=== PATIENT | male | born 1955 | race Caucasian/White ===

== ENCOUNTER 2019-12-19 09:45 | Outpatient (REF) | payer OTHER, SELFPAY ==
[2019-12-19 19:16] LABS: Calculated LDL 181 mg/dL (<100); Cholesterol 241 mg/dL (<200); Glucose 96 mg/dL (74-106); HDL Cholesterol 37 mg/dL (40-60); Triglyceride 116 mg/dL (<150)
== END 2019-12-19 10:05 ==
LOC: NCHCN 09:45
PROVIDERS: PCP Family Medicine; Visit Provider Nurse Practitioner Family
DX: Z00.00 Encounter for general adult medical examination without abnormal findings (principal); E78.5 Hyperlipidemia, unspecified
CPT/HCPCS: 80061; 82947

== ENCOUNTER 2020-02-05 10:21 | Outpatient (REF) | payer OTHER, SELFPAY ==
--- NOTE | 2020-02-05 09:30 | SKI_PTH ---
PATIENT: Antwan Gonzalez JR LOC: [facility] U#:[id number] AGE/SX: 64/M ROOM: RE02/05/[address]: Tiffany Shane : 1955 BED: DIS: 02/05/2020 SPEC #: [id number] RECD: 02/06/20 11:43 STATUS: ZAY REQ #: [id number] RAMA: 02/05/20 09:[address]: Tiffany Shane DEPT: Surgical Specimen RECD BY: Phoebe Choi ENTERED: 02/06/20 11:43 SP TYPE: EUSEBIA BERRY DR: Rhiannon Parisi V Tissues: 1 - SKIN BIOPSY(SHAVE/PUNCH) Procedures: SKIN LEVEL 4 Comments: [id number]
[2020-02-05 20:10] LABS: Anion Gap 6.2 mmol/L (3-11); BUN 20 mg/dL (7-18); CO2 28.8 mmol/L (21.0-32.0); CREATININE 0.83 mg/dL (0.70-1.30); Calculated LDL 86 mg/dL (<100); Chloride 105 mmol/L (98-107); Cholesterol 142 mg/dL (<200); Glucose 94 mg/dL (74-106); HDL Cholesterol 44 mg/dL (40-60); Potassium 4.5 mmol/L (3.5-5.1); Sodium 140 mmol/L (136-145); Triglyceride 64 mg/dL (<150)
== END 2020-02-05 10:41 ==
LOC: NCHCN 10:21
PROVIDERS: PCP Family Medicine; Visit Provider Nurse Practitioner Family
DX: E78.5 Hyperlipidemia, unspecified (principal); D18.01 Hemangioma of skin and subcutaneous tissue
CPT/HCPCS: 80048; 80061; 88305

== ENCOUNTER 2020-12-17 09:04 | Outpatient (REF) | payer BC, SELFPAY ==
[2020-12-17 16:08] LABS: ALT 34 U/L (16-63); AST 26 U/L (15-37); Calculated LDL 93 mg/dL (<100); Cholesterol 146 mg/dL (<200); Glucose 89 mg/dL (74-106); HDL Cholesterol 40 mg/dL (40-60); Triglyceride 68 mg/dL (<150)
[2020-12-17 16:21] LABS: Creatine Kinase 261 U/L (39-308)
[2020-12-17 21:51] LABS: PSA, Screening 6.9 ng/mL (0.0-4.5)
== END 2020-12-17 09:05 | disposition home or self-care (01) ==
LOC: NCHCN 09:04
PROVIDERS: PCP Family Medicine; Visit Provider Nurse Practitioner Family
DX: Z00.00 Encounter for general adult medical examination without abnormal findings (principal); Z13.1 Encounter for screening for diabetes mellitus; Z13.220 Encounter for screening for lipoid disorders; Z12.5 Encounter for screening for malignant neoplasm of prostate
CPT/HCPCS: 80061; 82550; 82947; 84153; 84450; 84460

== ENCOUNTER 2021-01-12 14:08 | Outpatient (REF) | payer BC, SELFPAY ==
[2021-01-12 16:22] LABS: Bacteria Few HPF (Negative); C & S Indicated? C&S Done As Ordered; Casts Negative LPF (Negative); Crystals Negative HPF (Negative); Epithelial Cells Few HPF (Negative); Mucus Negative (Negative); RBC >50 HPF (0-2)
[2021-01-12 19:18] LABS: Abs Immature Grans 0.05 10^3/uL (0.0-0.06); Absolute Eosinophil Count 0.03 10^3/uL (0.0-0.7); Absolute Lymphocyte Count 1.61 10^3/uL (1.2-3.4); Absolute Monocyte Count 0.72 10^3/uL (0.1-0.8); Basophils % 0.3; Eosinophils % 0.2; HCT 42.9 % (40.0-50.0); HGB 14.6 g/dL (13.5-17.5); Immature Grans % 0.3; Lymphocytes % 10.3; MCH 32.8 pg (27.0-33.0); MCV 96.4 fL (80-95); Monocytes % 4.6; Neutrophils % 84.3; Nucleated RBC 0 %; RBC 4.45 10^6/uL (4.36-5.78); RDW-SD 46.5 fL; WBC 15.64 10^3/uL (4.4-10.8)
[2021-01-12 19:27] LABS: Anion Gap 9.5 mmol/L (3-11); BUN 15 mg/dL (7-18); CO2 25.5 mmol/L (21.0-32.0); CREATININE 0.8 mg/dL (0.70-1.30); Chloride 108 mmol/L (98-107); Glucose 96 mg/dL (74-106); Potassium 4.7 mmol/L (3.5-5.1); Sodium 143 mmol/L (136-145)
[2021-01-12 19:31] LABS: Absolute Basophil Count 0.05 10^3/uL (0.0-0.2); Absolute Neutrophil Count 13.18 10^3/uL (1.2-6.7)
== END 2021-01-12 14:09 | disposition home or self-care (01) ==
LOC: NCHCN 14:08
PROVIDERS: PCP Family Medicine; Visit Provider Nurse Practitioner Family
DX: R30.0 Dysuria (principal); R31.9 Hematuria, unspecified
CPT/HCPCS: 80048; 81015; 85025; 87086

== ENCOUNTER 2021-02-02 16:36 | Outpatient (CLI) | payer BC, SELFPAY ==
--- NOTE | 2021-02-02 | DI.RAD_ITS ---
Exam(s) XR RIBS BI INCLUDE CHEST EXAM: XR RIBS BI INCLUDE CHEST CLINICAL HISTORY: RIB PAIN RT, R07.81, FALL SEVERAL DAYS AGO, RIB 2-3 AREA ON RT SIDE, ? FX TECHNIQUE: 2D digital imaging was performed. COMPARISON: CR CHEST 2 VIEWS PA,LAT from 01/29/2014 FINDINGS: There is a small subtle suggestion of a nondisplaced fracture of the right 6th rib. Correlation with site of tenderness is recommended as this is only evident on 1 view. There are no obvious fractures on the opposite-left side. Right lung is clear. However, there appears to be some infiltrate in th e left lower lobe. No pleural effusions. No lung contusion or pneumothorax. There is no pleural effusion evident. Heart size is normal and there is no significant mediastinal widening. IMPRESSION: 1. Possible subtle fracture of right 6th rib. Correlation with site of tenderness is recommended. 2. Right lung is clear. Is there mild infiltrate the left lower lobe. DATA REPOSITORY: RADIATION DOSE DELIVERED:
== END 2021-02-02 16:56 ==
PROVIDERS: PCP Family Medicine; Visit Provider Nurse Practitioner Family
DX: R07.81 Pleurodynia (principal); Z91.81 History of falling
CPT/HCPCS: 71046; 71110

== ENCOUNTER 2021-06-19 10:45 | Outpatient (REF) | payer BC, SELFPAY ==
[2021-06-20 11:11] LABS: Free PSA/PSA Ratio 0.12 ratio
== END 2021-06-19 10:46 | disposition home or self-care (01) ==
LOC: LBN 10:45
PROVIDERS: PCP Family Medicine; Visit Provider Urology
DX: R97.20 Elevated prostate specific antigen [PSA] (principal)
CPT/HCPCS: 84154

== ENCOUNTER 2021-09-23 09:17 | Outpatient (REF) | payer BC, SELFPAY ==
[2021-09-23 14:11] LABS: FREE T4 0.86 ng/dL (0.76-1.46)
== END 2021-09-23 09:18 | disposition home or self-care (01) ==
LOC: NCHCN 09:17
PROVIDERS: PCP Family Medicine; Visit Provider Nurse Practitioner Family
DX: G47.00 Insomnia, unspecified (principal)
CPT/HCPCS: 84439; 84443

== ENCOUNTER 2022-01-12 18:17 | Outpatient (REF) | payer BC, SELFPAY ==
[2022-01-12 22:49] LABS: PSA, Diagnostic 9.8 ng/mL (<=4.5)
== END 2022-01-12 18:18 | disposition home or self-care (01) ==
LOC: NCHCN 18:17
PROVIDERS: PCP Family Medicine; Visit Provider Nurse Practitioner Family
DX: C61 Malignant neoplasm of prostate (principal); F41.9 Anxiety disorder, unspecified
CPT/HCPCS: 84153

== ENCOUNTER 2022-03-16 15:17 | Outpatient (REF) | payer BC, SELFPAY ==
[2022-03-16 16:15] LABS: Abs Immature Grans 0.01 10^3/uL (0.0-0.06); Absolute Basophil Count 0.05 10^3/uL (0.0-0.2); Absolute Eosinophil Count 0.28 10^3/uL (0.0-0.7); Absolute Lymphocyte Count 2.15 10^3/uL (1.2-3.4); Absolute Monocyte Count 0.91 10^3/uL (0.1-0.8); Absolute Neutrophil Count 5.08 10^3/uL (1.2-6.7); Basophils % 0.6; Eosinophils % 3.3; HCT 43.6 % (40.0-50.0); Immature Grans % 0.1; Lymphocytes % 25.4; MCH 33.2 pg (27.0-33.0); MCHC 34.4 % (32.0-36.0); MCV 97 fL (80-95); MPV 10.9 fL (8.0-11.0); Monocytes % 10.7; Neutrophils % 59.9; Platelet Count 381 10^3/uL (130-400); RBC 4.52 10^6/uL (4.36-5.78); RDW 13.3 % (11.8-14.1); RDW-SD 47.5 fL; WBC 8.48 10^3/uL (4.4-10.8)
[2022-03-16 16:46] LABS: ALT 32 U/L (16-63); AST 26 U/L (15-37); Albumin 3.8 g/dL (3.4-5.0); Alkaline Phosphatase 70 U/L (46-116); Anion Gap 9.5 mmol/L (3-11); BUN 15 mg/dL (7-18); CO2 26.5 mmol/L (21.0-32.0); CREATININE 0.9 mg/dL (0.70-1.30); Calcium 8.9 mg/dL (8.5-10.1); Calculated LDL 94 mg/dL (<100); Chloride 105 mmol/L (98-107); Cholesterol 152 mg/dL (<200); Glucose 95 mg/dL (74-106); HDL Cholesterol 42 mg/dL (40-60); Potassium 4.2 mmol/L (3.5-5.1); Sodium 141 mmol/L (136-145); Total Protein 7.4 g/dL (6.4-8.2); Triglyceride 81 mg/dL (<150)
[2022-03-16 17:21] LABS: Creatine Kinase 236 U/L (39-308)
[2022-03-17 09:16] LABS: Vitamin B12 555 pg/mL (193-986)
== END 2022-03-16 15:18 | disposition home or self-care (01) ==
LOC: NCHCN 15:17
PROVIDERS: PCP Family Medicine; Visit Provider Nurse Practitioner Family
DX: Z00.00 Encounter for general adult medical examination without abnormal findings (principal); R97.20 Elevated prostate specific antigen [PSA]; E78.5 Hyperlipidemia, unspecified; Z12.5 Encounter for screening for malignant neoplasm of prostate; R89.8 Other abnormal findings in specimens from other organs, systems and tissues
CPT/HCPCS: 80053; 80061; 82550; 84153; 82607; 85025

== ENCOUNTER 2022-03-18 08:28 | Outpatient (REF) | payer BC, SELFPAY ==
[2022-03-18 16:13] LABS: Folate > 20.0 ng/mL (8.6-20.0)
[2022-03-19 18:24] LABS: PSA, Screening 9.2 ng/mL (<=4.5)
== END 2022-03-18 08:29 | disposition home or self-care (01) ==
LOC: NCHCN 08:28
PROVIDERS: PCP Family Medicine; Visit Provider Nurse Practitioner Family
DX: R97.20 Elevated prostate specific antigen [PSA] (principal); R89.9 Unspecified abnormal finding in specimens from other organs, systems and tissues; Z12.5 Encounter for screening for malignant neoplasm of prostate
CPT/HCPCS: 84153; 82746

== ENCOUNTER 2022-07-01 17:59 | Outpatient (REF) | payer BC, SELFPAY | END 2022-07-01 18:00 | disposition home or self-care (01) | LOC: LBN 17:59 | PROVIDERS: PCP Family Medicine; Visit Provider Radiology Radiation Oncology | DX: C61 Malignant neoplasm of prostate (principal) | CPT/HCPCS: 84153 ==

== ENCOUNTER 2022-10-18 09:02 | Outpatient (REF) | payer BC, SELFPAY ==
[2022-10-19 18:28] LABS: PSA, Diagnostic 6.6 ng/mL (<=4.5)
== END 2022-10-18 09:03 | disposition home or self-care (01) ==
LOC: NCHCN 09:02
PROVIDERS: PCP Family Medicine; Visit Provider Nurse Practitioner Family
DX: C61 Malignant neoplasm of prostate (principal); R97.20 Elevated prostate specific antigen [PSA]; Z00.00 Encounter for general adult medical examination without abnormal findings
CPT/HCPCS: 84153

== ENCOUNTER 2022-11-10 13:29 | Outpatient (REF) | payer BC, SELFPAY ==
[2022-11-11 23:02] LABS: COVID-19 RT-PCR UVMMC Result Negative (Negative)
== END 2022-11-10 13:30 | disposition home or self-care (01) ==
LOC: NCHCN 13:29
PROVIDERS: PCP Family Medicine; Visit Provider Nurse Practitioner Family
DX: Z20.822 Contact with and (suspected) exposure to COVID-19 (principal); Z01.818 Encounter for other preprocedural examination
CPT/HCPCS: U0003

== ENCOUNTER 2023-02-10 13:26 | Outpatient (REF) | payer BC, SELFPAY ==
[2023-02-11 16:43] LABS: PSA, Ultrasensitive 10.6 ng/mL (<= 4.5)
== END 2023-02-10 13:27 | disposition home or self-care (01) ==
LOC: LBN 13:26
PROVIDERS: PCP Family Medicine; Visit Provider Radiology Radiation Oncology
DX: C61 Malignant neoplasm of prostate (principal)
CPT/HCPCS: 84153

== ENCOUNTER 2023-03-22 08:34 | Outpatient (REF) | payer BC, SELFPAY ==
[2023-03-22 16:45] LABS: ALT 22 U/L (16-63); AST 22 U/L (15-37); Albumin 3.5 g/dL (3.4-5.0); Alkaline Phosphatase 73 U/L (46-116); Anion Gap 5.4 mmol/L (3-11); BUN 11 mg/dL (7-18); Bilirubin, Total 0.5 mg/dL (0.2-1.0); CO2 29.6 mmol/L (21.0-32.0); CREATININE 0.8 mg/dL (0.70-1.30); Calcium 8.7 mg/dL (8.5-10.1); Calculated LDL 95 mg/dL (<100); Chloride 107 mmol/L (98-107); Cholesterol 165 mg/dL (<200); Glucose 95 mg/dL (74-106); HDL Cholesterol 44 mg/dL (40-60); Potassium 4.1 mmol/L (3.5-5.1); Sodium 142 mmol/L (136-145); Total Protein 7.1 g/dL (6.4-8.2); Triglyceride 133 mg/dL (<150)
[2023-03-22 16:57] LABS: Creatine Kinase 131 U/L (39-308)
[2023-03-24 19:49] LABS: PSA, Ultrasensitive 10.4 ng/mL (<= 4.5)
== END 2023-03-22 08:35 | disposition home or self-care (01) ==
LOC: NCHCN 08:34
PROVIDERS: PCP Family Medicine; Visit Provider Nurse Practitioner Family
DX: Z00.00 Encounter for general adult medical examination without abnormal findings (principal); E78.5 Hyperlipidemia, unspecified; C61 Malignant neoplasm of prostate
CPT/HCPCS: 80053; 80061; 82550; 84153

== ENCOUNTER 2023-05-27 16:10 | Outpatient (REF) | payer BC, SELFPAY ==
[2023-05-30 14:25] LABS: PSA, Ultrasensitive 9.3 ng/mL (<= 4.5)
== END 2023-05-27 16:11 | disposition home or self-care (01) ==
LOC: LBN 16:10
PROVIDERS: PCP Family Medicine; Visit Provider Radiology Radiation Oncology
DX: C61 Malignant neoplasm of prostate (principal)
CPT/HCPCS: 84153

== ENCOUNTER 2023-10-13 08:02 | Outpatient (REF) | payer BC, SELFPAY ==
[2023-10-14 17:10] LABS: PSA, Ultrasensitive 11.1 ng/mL (<= 4.5)
== END 2023-10-13 08:03 | disposition home or self-care (01) ==
LOC: LBN 08:02
PROVIDERS: PCP Family Medicine; Visit Provider Radiology Radiation Oncology
DX: C61 Malignant neoplasm of prostate (principal)
CPT/HCPCS: 84153

== ENCOUNTER 2024-02-16 07:42 | Outpatient (REF) | payer BC, SELFPAY ==
[2024-02-17 20:52] LABS: PSA, Ultrasensitive <0.01 ng/mL (<= 6.5)
== END 2024-02-16 07:43 | disposition home or self-care (01) ==
LOC: LBN 07:42
PROVIDERS: PCP Family Medicine; Visit Provider Urology
DX: C61 Malignant neoplasm of prostate (principal)
CPT/HCPCS: 84153

== ENCOUNTER 2024-05-24 15:27 | Outpatient (REF) | payer BC, SELFPAY ==
[2024-05-25 19:31] LABS: PSA, Diagnostic <0.1 ng/mL (<=6.5)
== END 2024-05-24 15:28 | disposition home or self-care (01) ==
LOC: NCHCN 15:27
PROVIDERS: PCP Nurse Practitioner Family; Visit Provider Nurse Practitioner Family
DX: C61 Malignant neoplasm of prostate (principal)
CPT/HCPCS: 84153

== ENCOUNTER 2024-10-15 09:05 | Emergency (ER) | payer BC, SELFPAY ==
[2024-10-15 09:12] VITALS: BP 151/80; PULSE 51; RESP 14; TEMP 36.4; O2SAT 99
[2024-10-15 09:19] VITALS: BP 151/80; PULSE 51; RESP 14; TEMP 36.4; O2SAT 99
--- NOTE | 2024-10-15 10:12 | W.ED.GENAD ---
Discharge Plan Disposition Patient Disposition: Home Condition: Good Discharge Details Clinical Impression: Kidney stone, Acute flank pain Primary Care Provider: Vianey Gramajo ED Provider: Genet Mueller Home Meds and New Rx's Prescriptions: New tamsulosin [Flomax] 0.4 mg capsule 0.4 mg PO DAILY Qty: 7 0RF Rx Instructions: stop after passage of stone oxycodone 5 mg capsule 5 mg PO Q4H PRN (Reason: pain) Qty: 7 0RF ondansetron 4 mg tablet,disintegrating 4 mg PO Q6H PRN (Reason: nausea and vomiting) Qty: 10 0RF Continued multivitamin [Daily Multiple] 1 EACH tablet 1 ea PO DAILY Glucosamine Complex-MSM 1 EACH capsule 1 ea PO DAILY Fish Oil 1 EACH capsule 1 ea PO DAILY ferrous gluconate 256 MG tablet 256 mg PO TID polyethylene glycol 3350 [Miralax] 17 GM powder in packet 255 gm PO for colonoscopy Qty: 1 0RF bisacodyl [Dulcolax (bisacodyl)] 5 MG tablet,delayed release (DR/EC) 5 mg PO ONCE Qty: 4 0RF Rx Instructions: Take as directed. prednisone 20 MG tablet 60 mg PO DAILY Qty: 12 0RF Rx Instructions: start 04/27/16 epinephrine [EpiPen 2-Stuart] 0.3 MG/0.3 ML auto-injector 0.3 mg IJ PRN PRN (Reason: Anaphylaxis) Qty: 1 0RF Patient Comments: Pt has one available for bee stings atorvastatin 20 mg tablet 20 mg PO DAILY Patient Comments: TAKE ONE TABLET BY MOUTH EVERY NIGHT escitalopram oxalate 10 mg tablet 10 mg PO DAILY Patient Comments: TAKE ONE TABLET BY MOUTH EVERY MORNING aspirin 81 mg capsule 81 mg PO DAILY mecobalamin (vitamin B12) 2 tab PO DAILY Discharge Instructions Instructions: Kidney Stone, Adult ED Additional Instructions: As we discussed, you have a small, 2 mm stone, that is almost into your bladder on the right side. Please continue to encourage hydration. Tylenol and ibuprofen as needed for discomfort. If this is not enough to control your discomfort, you may use oxycodone as prescribed. Please take only as prescribed and keep this in a safe place. Do not drink alcohol or drive will take this medication. May also use the Zofran as prescribed to help with any recurrent nausea. I have prescribed you tamsulosin, next dose will be due tomorrow if your stone does not pass at that time. This will help to dilate the ureter to improve passage of the stone. Please stop taking this medication once the stone has passed. Referral for urology has been sent. Please follow-up with your primary care in 1 week for reevaluation. If you develop fever/chills, increased pain, inability stay hydrated or other new/worsening symptoms please seek care urgently once again. Referrals: Vianye Gramajo [Primary Care Provider] - Discharge Data Discharge Date/Time-TO BE ENTERED AT DEPARTURE: 10/15/24 12:58 HPI General Date/Time Provider Initiated Documentation: 10/15/24 09:58. Limitations to Documentation: no limitations. Information obtained by: patient, family and RN notes reviewed. History of Present Illness 68 year old M presents to the emergency department with the chief complaint of right flank pain, described as severe and similar to prior episodes (hx of nephrolithiasis), Patient reports no radiation. Patient started experiencing this day(s) and it has been constant. No relieving factors improve symptom(s), No exacerbating factors reported . Patient notes loss of appetite, malaise and nausea/vomiting; denies chest pain, cough, diaphoresis, fever/chills, headaches, rash, shortness of breath and weakness. Patient did receive the following treatments prior to arrival, none Related Data Home Medications ?Medication ?Instructions ?Recorded ?Confirmed epinephrine 0.3 mg/0.3 mL 0.3 mg (0.3 mL) IJ PRN PRN 04/26/16 10/15/24 injection, auto-injector (EpiPen Anaphylaxis #1 mL 2-Stuart) prednisone 20 mg tablet 60 mg (3 x 20 mg) PO DAILY ##12 04/26/16 10/15/24 bisacodyl 5 mg tablet,delayed 5 mg PO ONCE #4 tabs 06/17/17 10/15/24 release (Dulcolax (bisacodyl)) ferrous gluconate 256 mg (28 mg 256 mg PO TID 06/17/17 10/15/24 iron) tablet [id number] 1 ea PO DAILY 06/17/17 10/15/24 capsule (Glucosamine Complex-MSM capsule) multivitamin (Daily Multiple 1 ea PO DAILY 06/17/17 10/15/24 tablet) omega-3 fatty acids-fish oil 340 1 ea PO DAILY 06/17/17 10/15/24 mg-1,000 mg capsule (Fish Oil) polyethylene glycol 3350 17 gram 255 gm PO for colonoscopy #1 g 06/17/17 10/15/24 oral powder packet (Miralax) aspirin 81 mg capsule 81 mg PO DAILY 10/15/24 10/15/24 atorvastatin 20 mg tablet 20 mg PO DAILY 10/15/24 10/15/24 escitalopram oxalate 10 mg tablet 10 mg PO DAILY 10/15/24 10/15/24 mecobalamin (vitamin B12) 2 tab PO DAILY 10/15/24 10/15/24 ondansetron 4 mg disintegrating 4 mg PO Q6H PRN nausea and 10/15/24 tablet vomiting #10 tabs oxycodone 5 mg capsule 5 mg PO Q4H PRN pain #7 caps 10/15/24 tamsulosin 0.4 mg capsule (Flomax) 0.4 mg PO DAILY #7 caps 10/15/24 Previous Rx's ?Medication ?Instructions ?Recorded epinephrine 0.3 mg/0.3 mL 0.3 mg (0.3 mL) IJ PRN PRN 04/26/16 injection, auto-injector (EpiPen Anaphylaxis #1 mL 2-Stuart) prednisone 20 mg tablet 60 mg (3 x 20 mg) PO DAILY ##12 04/26/16 bisacodyl 5 mg tablet,delayed 5 mg PO ONCE #4 tabs 06/17/17 release (Dulcolax (bisacodyl)) polyethylene glycol 3350 17 gram 255 gm PO for colonoscopy #1 g 06/17/17 oral powder packet (Miralax) ondansetron 4 mg disintegrating 4 mg PO Q6H PRN nausea and 10/15/24 tablet vomiting #10 tabs oxycodone 5 mg capsule 5 mg PO Q4H PRN pain #7 caps 10/15/24 tamsulosin 0.4 mg capsule (Flomax) 0.4 mg PO DAILY #7 caps 10/15/24 Allergies Allergy/AdvReac Type Severity Reaction Status Date / Time No Known Allergies Allergy Unverified 10/15/24 09:15 General Stated Complaint: FlankPain JERRY: 3 Review of Systems Constitutional Constitutional: Reports as per HPI, Denies chills, Denies fever(s) and Denies headache(s) ENT Ears, Nose, Mouth, and Throat: Denies headache(s) Cardiovascular Cardiovascular: Reports as per HPI, Denies chest pain and Denies dyspnea Respiratory Respiratory: Reports as per HPI, Denies cough and Denies dyspnea Gastrointestinal Gastrointestinal: Reports as per HPI Genitourinary Genitourinary: Reports as per HPI Musculoskeletal Musculoskeletal: Reports as per HPI Neurologic Neurologic: Denies headache(s) Exam Const General: cooperative, healthy appearing, comfortable, no acute distress and well developed Nutritional Appearance: average body habitus and well nourished Orientation: alert and awake HENMT Mouth: moist mucous membranes Resp Effort & Inspection: normal respiratory effort and no respiratory distress Auscultation: clear to auscultation bilaterally, no rales, no rhonchi and no wheezes Cardio Rate: regular rate Rhythm: regular rhythm Heart Sounds: S1 normal and S2 normal GI Inspection: normal to inspection, no edema and non-distended Palpation: soft, no hepatosplenomegaly, no guarding, no hernias, no pulsatile masses and nontender Percussion: normal to percussion Auscultation: normal bowel sounds Back/Spine/Pelvis Back: CVA tenderness (right) Skin General skin exam: no rashes or lesions noted Neuro General: patient alert and patient awake Cognition: normal cognition Speech: speech normal Gait: normal gait Course Vital Signs Vital signs: Vital Signs Temperature 36.4 C L 10/15/24 09:12 Pulse 51 L 10/15/24 09:12 Respiratory Rate 14 10/15/24 09:12 Blood Pressure 151/80 H 10/15/24 09:12 Pulse Oximetry 99 10/15/24 09:12 Temperature 36.4 C L 10/15/24 09:19 Temperature Source Oral 10/15/24 09:19 Pulse 51 L 10/15/24 09:19 Respiratory Rate 14 10/15/24 09:19 Blood Pressure 151/80 H 10/15/24 09:19 Pulse Oximetry 99 10/15/24 09:19 Oxygen Delivery Method Room Air 10/15/24 09:19 Oxygen Flow Rate 0 10/15/24 09:19 Pain Level 6 10/15/24 09:22 Medical Decision Making Patient is a pleasant 68-year-old male, accompanied by significant other, with chief complaint of right-sided flank pain similar to when he has had kidney stones historically. He reports last stone he had was about 10 years ago and this did have to be resected surgically. He states that pain has been present for the past 24 to 48 hours. States that he is had some nausea and vomiting, this has picked up more so this morning as the pain is increased. He denies any dysuria, increased frequency or urgency. He denies any change in his bowel habits. He has not been able to hold anything down has not taken anything for his discomfort. Denies any fevers or chills. On exam, patient appears nontoxic. He is hemodynamically stable. He does have right-sided CVA tenderness, some slight mild left CVA tenderness. No abdominal pain with palpation. He denies any testicular pain although he states that when the pain significantly increases he can have a slight discomfort in this area. Concern primarily for recurrent nephrolithiasis based on his description. His urinalysis did not show any evidence to suggest infection. However, he did have ketones, elevated gravity as well as blood in the urine. The hematuria certainly is consistent with him having nephrolithiasis. Patient is also receiving hydration and dehydrated state could certainly explain the elevated gravity. He has an elevated WBC at 15.9 but again, this does not seem to be consistent with infectious process, likely associated with the discomfort as well as his nausea. CMP shows elevated potassium 3.2, he will replenish this orally. Creatinine within normal limits, as is GFR. No other significant abnormalities. CT reviewed by myself as well as the radiologist, concerning for a small 2 mm stone at the right ureterovesicular junction. He does have bladder wall thickening. Patient is status post prostatectomy. Of note, they did note a possible necrotic lymph node but were questioning if this could be associated with the previous surgery and with the clarification the patient did indeed have a prostatectomy, no recommendations for further evaluation or made. Patient feeling improved. He did receive Toradol, this was after this was not sufficient, patient was augmented with morphine. He did receive 1 L of fluids. Again, no evidence to suggest obstructive urosepsis. Patient agreeable to go home. He was started on Flomax. Will prescribe a short course of opioids. He is advised to drive or drink alcohol using this medication only as prescribed. He has had stones historically and these have been tested by urology so do not see need for the patient to have a strainer at this point. However, as he is new to the area we will also refer to our local urology team for continued management. I did encourage hydration, he believes that dehydration may have led to today's current events. Return precautions were discussed. All questions and concerns were addressed and he is in agreement this plan. This documentation was generated using [email or web address] dictation system, please disregard any oddities of phrase or misspellings. Quality:SDOH Health Related Social Needs: No Data to Display PFSH All Active Problems (Updated 10/15/24 @ 12:38 by NIR De La Torre) Acute flank pain (Acute) Kidney stone (Chronic) Medical History (Updated 10/15/24 @ 12:38 by NIR De La Torre) Tubular adenoma of colon Knee pain, left Asplenia Family history of coronary artery disease Claustrophobia Bronchospasm Surgical History (Updated 06/07/18 @ 14:34 by [employer] [place]) Splenomegaly Colonoscopy - [facility] (07/05/17) Appendectomy Social History Smoking/Tobacco Use Status: Never Smoking risk assessment performed?: Yes Alcohol Intake: current Alcohol Intake frequency: a few times a month Drug use: Never Substance use type: does not use Do you feel safe at home: Yes Do you feel safe in your relationship?: Yes
[2024-10-15 10:22] LABS: Bilirubin Small (Negative); Blood Small (Negative); Clarity Clear (Clear); Glucose Negative (Negative); Ketones >=160 mg/dL (Negative); Leukocyte Esterase Negative (Negative); Nitrite Negative (Negative); Specific Gravity >= 1.030 (1.005-1.025); Urobilinogen 0.2 mg/dL (Up to 0.2)
[2024-10-15 10:31] LABS: Bacteria Rare HPF (Negative); C & S Indicated? No; Casts Negative LPF (Negative); Crystals Negative HPF (Negative); Epithelial Cells Rare HPF (Negative); Mucus Moderate (Negative); WBC 0-2 HPF (0-5)
[2024-10-15] MEDS: Ketorolac 30 MG/ML VIAL IVP (10:52)
[2024-10-15] MEDS: Ondansetron 4 MG/2 ML VIAL IVP (10:52)
[2024-10-15] MEDS: Normal Saline 1,000 ML 1000 ML IV (10:53)
[2024-10-15] MEDS: MORPHine 4 MG/ML SYR IVP (11:16)
[2024-10-15 11:31] LABS: Absolute Basophil Count 0.05 10^3/uL (0.0-0.2); Absolute Lymphocyte Count 1.27 10^3/uL (1.2-3.4); Absolute Monocyte Count 0.81 10^3/uL (0.1-0.8); Basophils % 0.3 %; Eosinophils % 0.3 %; HCT 43.8 % (40.0-50.0); HGB 14.7 g/dL (13.5-17.5); Immature Grans % 0.6 %; MCHC 33.6 % (32.0-36.0); MCV 98 fL (80-95); Monocytes % 5.1 %; Neutrophils % 85.7 %; Platelet Count 372 10^3/uL (130-400); RBC 4.46 10^6/uL (4.36-5.78); RDW 13.5 % (11.8-14.1); RDW-SD 49.5 fL; WBC 15.92 10^3/uL (4.4-10.8)
[2024-10-15 11:35] LABS: ALT 28 U/L (16-63); AST 22 U/L (15-37); Alkaline Phosphatase 97 U/L (46-116); Anion Gap 8.7 mmol/L (3-11); BUN 16 mg/dL (7-18); Bilirubin, Total 1.22 mg/dL (0.2-1.0); CO2 27.3 mmol/L (21.0-32.0); CREATININE 0.9 mg/dL (0.70-1.30); Calcium 9.3 mg/dL (8.5-10.1); Chloride 105 mmol/L (98-107); Estimated GFR 91.88 (mL/min/1.73m2); Glucose 130 mg/dL (74-106); Potassium 3.2 mmol/L (3.5-5.1); Sodium 141 mmol/L (136-145); Total Protein 7.9 g/dL (6.4-8.2)
[2024-10-15 11:36] LABS: Absolute Eosinophil Count 0.05 10^3/uL (0.0-0.7); Absolute Neutrophil Count 13.64 10^3/uL (1.2-6.7)
[2024-10-15 11:59] VITALS: BP 163/74; PULSE 52; RESP 16; O2SAT 98
--- NOTE | 2024-10-15 12:05 | DI.CT_ITS ---
Exam(s) CT RENAL COLIC WO EXAM: CT RENAL COLIC WO CLINICAL HISTORY: right flank pain. TECHNIQUE: Imaging Protocol: Axial computed tomography images with coronal and sagittal reformatted images were created and reviewed. Oral: yes / no COMPARISON: CT CT ABDOMEN PELVIS WO from 01/12/2021 FINDINGS: Lung Bases: No acute findings. Small hiatal hernia. Liver: Normal density. No suspicious mass. Gallbladder and biliary tract: No radiodense calculus or biliary dilation. Pancreas: Normal density. No abnormal calcifications or inflammatory process. Spleen: Tiny focus of splenic tissue in the left upper quadrant. There is a stone there this Kidneys: Normal size, contour and axis. There is a 2 millimeter stone at the right ureterovesical ju nction causing moderate hydronephrosis. No suspicious masses seen. Right renal cyst. Adrenal glands: No masses seen. Lymph nodes: Within normal limits. Vasculature: Abdominal aorta non-dilated. Soft tissues: Small fat containing left inguinal hernia. Bladder: Not well distended. Mild diffuse wall thickening. Wall thickening. No mass or calculi. Bowel: No obstruction or bowel wall thickening. Peritoneal cavity: No ascites. No focal collection. No mesenteric inflammatory response. Reproductive organs: Prostate and seminal vesicles are no longer seen. Ovoid low-density collection noted adjacent to the left pelvic sidewall measuring 3 cm could represent a lymphocele versus necroti c lymph node. Bones: Unremarkable for age. IMPRESSION: Moderate right hydronephrosis secondary to a 2 millimeter stone at the ureterovesical junction. Diffuse bladder wall thickening. Status post prostatectomy. 3 centimeter ovoid fluid density collection in the left pelvic sidewall could represent lymphocele ve rsus necrotic lymph node. Status post splenectomy with small amount of residual or current splenic tissue. Findings called to Dr. Palacios of the emergency department. RADIATION DOSE DELIVERED: 462.19mGy.cm Total DLP 462.19mGy.cm Total DLP DATA REPOSITORY: All CT scans at this facility are submitted to the National Radiology Data Registry (NRDR) Dose Index Registry (DIR) with the [employer] ([employer]). RADIATION OPTIMIZATION: All CT scans at this facility use at least one of these dose optimization te chniques: automated exposure control; mA and/or kV adjustment per patient size (includes targeted exa ms where dose is matched to clinical indication); or iterative reconstruction.
[2024-10-15 12:57] VITALS: BP 157/69; PULSE 54; RESP 16; O2SAT 98
[2024-10-15] MEDS: Tamsulosin 0.4 MG CAPCR PO (12:57)
== END 2024-10-15 12:58 | disposition home or self-care (01) ==
PROVIDERS: Emergency Provider Physician Assistant; PCP Nurse Practitioner Family
DX: N20.0 Calculus of kidney (principal); R10.31 Right lower quadrant pain
CPT/HCPCS: 36415; 80053; 96374; 96375; 99284; 74176; 81003; 81015; 85025; J1885; J2270; J2405

== ENCOUNTER 2024-10-18 14:50 | Outpatient (REF) | payer BC, SELFPAY ==
[2024-10-18 15:42] LABS: Abs Immature Grans 0.02 10^3/uL (0.0-0.06); Absolute Basophil Count 0.05 10^3/uL (0.0-0.2); Absolute Eosinophil Count 0.31 10^3/uL (0.0-0.7); Absolute Monocyte Count 0.95 10^3/uL (0.1-0.8); Absolute Neutrophil Count 6.05 10^3/uL (1.2-6.7); Basophils % 0.6 %; Eosinophils % 3.6 %; HCT 40.3 % (40.0-50.0); HGB 13.7 g/dL (13.5-17.5); Immature Grans % 0.2 %; MCH 32.9 pg (27.0-33.0); MCV 97 fL (80-95); MPV 10.9 fL (8.0-11.0); Monocytes % 10.9 %; Neutrophils % 69.7 %; Platelet Count 355 10^3/uL (130-400); RBC 4.16 10^6/uL (4.36-5.78); RDW 13.6 % (11.8-14.1); RDW-SD 49.1 fL; WBC 8.68 10^3/uL (4.4-10.8)
[2024-10-18 15:56] LABS: ALT 19 U/L (16-63); AST 18 U/L (15-37); Albumin 3.4 g/dL (3.4-5.0); Alkaline Phosphatase 79 U/L (46-116); Anion Gap 7.8 mmol/L (3-11); BUN 12 mg/dL (7-18); Bilirubin, Total 1.02 mg/dL (0.2-1.0); CO2 28.2 mmol/L (21.0-32.0); CREATININE 0.8 mg/dL (0.70-1.30); Calcium 9.2 mg/dL (8.5-10.1); Chloride 107 mmol/L (98-107); Estimated GFR 95.21 (mL/min/1.73m2); Glucose 84 mg/dL (74-106); Sodium 143 mmol/L (136-145); Total Protein 6.6 g/dL (6.4-8.2)
[2024-10-22 14:58] LABS: PSA, Screening <0.1 ng/mL (0-6.5)
== END 2024-10-18 14:51 | disposition home or self-care (01) ==
LOC: NCHCN 14:50
PROVIDERS: PCP Nurse Practitioner Family; Visit Provider Family Medicine
DX: N20.0 Calculus of kidney (principal)
CPT/HCPCS: 80053; 84153; 85025

== ENCOUNTER 2025-04-15 19:00 | Emergency (ER) | payer BC, SELFPAY ==
[2025-04-15 19:05] VITALS: BP 114/75; PULSE 67; RESP 16; TEMP 36.3; O2SAT 94
[2025-04-15 20:03] VITALS: BP 121/74; PULSE 55; RESP 16; O2SAT 100
[2025-04-15] MEDS: diphenhydrAMINE 25 MG CAP 50 MG PO (20:34)
--- NOTE | 2025-04-15 21:09 | W.ED.GENAD ---
Discharge Plan Disposition Patient Disposition: Home Condition: Stable Discharge Details Clinical Impression: Allergic reaction to wasp sting Primary Care Provider: Vianey Gramajo ED Provider: Mary Grace Moss Home Meds and New Rx's Prescriptions: New epinephrine [EpiPen] 0.3 mg/0.3 mL auto-injector 0.3 mg IM Q5-15M PRNQty: 1 0RF Rx Instructions: do not exceed 3 doses per episode No Action prednisone 5 mg tablet 5 mg PO DAILY Qty: 49 0RF Rx Instructions: 40mg x 2 days, 30mg x 2 days, 20mg x 2 days, 15 mg x 2 days, 10 mg x 2 days, 5 mg x 2 days, 2.5 mg x 2 days. multivitamin [Daily Multiple] 1 EACH tablet 1 ea PO DAILY Glucosamine Complex-MSM 1 EACH capsule 1 ea PO DAILY Fish Oil 1 EACH capsule 1 ea PO DAILY ferrous gluconate 256 MG tablet 256 mg PO TID polyethylene glycol 3350 [Miralax] 17 GM powder in packet 255 gm PO for colonoscopy Qty: 1 0RF bisacodyl [Dulcolax (bisacodyl)] 5 MG tablet,delayed release (DR/EC) 5 mg PO ONCE Qty: 4 0RF Rx Instructions: Take as directed. epinephrine [EpiPen 2-Stuart] 0.3 MG/0.3 ML auto-injector 0.3 mg IJ PRN PRN (Reason: Anaphylaxis) Qty: 1 0RF Patient Comments: Pt has one available for bee stings atorvastatin 20 mg tablet 20 mg PO DAILY Patient Comments: TAKE ONE TABLET BY MOUTH EVERY NIGHT escitalopram oxalate 10 mg tablet 10 mg PO DAILY Patient Comments: TAKE ONE TABLET BY MOUTH EVERY MORNING aspirin 81 mg capsule 81 mg PO DAILY mecobalamin (vitamin B12) 2 tab PO DAILY tamsulosin [Flomax] 0.4 mg capsule 0.4 mg PO DAILY Qty: 7 0RF Rx Instructions: stop after passage of stone oxycodone 5 mg capsule 5 mg PO Q4H PRN (Reason: pain) Qty: 7 0RF Discharge Instructions Instructions: Insect Bites and Stings ED Additional Instructions: You were seen in the emergency department today for evaluation after several wasp stings. In our department you to full physical examination performed, which was quite reassuring. You had some itchiness to your head and hands, and received a dose of Benadryl. Given your history of allergic reaction we did observe you in the emergency department and you did not develop any symptoms that would require EpiPen or further observation in the hospital at this time. I recommend that you continue to use either Benadryl or Claritin/Zyrtec for management of itching. You can use topical skin ointment such as hydrocortisone, Benadryl, calamine, etc. I have provided you with a refill of your EpiPen prescription. If you develop any new symptoms such as shortness of breath, throat swelling, you need to return to the emergency department immediately for reevaluation of the delayed allergic reaction. Otherwise, please follow-up with your primary care provider in the next few days to discuss this visit and any symptoms that change, worsen, or persist. Thank you for allowing us to be part of your care. Stand Alone Forms: Work Release Discharge Data Discharge Date/Time-TO BE ENTERED AT DEPARTURE: 04/15/25 21:29 HPI General Mode of arrival: ambulatory. Date/Time Provider Initiated Documentation: 04/15/25 19:39. Limitations to Documentation: no limitations. Information obtained by: patient, family and old records reviewed. HPI Narrative: This is a 69-year-old male patient presenting for evaluation after wasp stings. About an hour and 1/2 to 2 hours prior to arrival at our facility the patient was working outside and was stung once on the left side of the neck and then several times on the back of the left hand. He reports that he had a glove on and removed it, but had some itching and pain in his left hand. He took Tylenol, ibuprofen, and iced it, has a very remote history of wasp sting requiring medical treatment and attempted to give himself his EpiPen. He thinks that it was out of date, and it misfired and he did not receive any medication. He has not taken any Benadryl or other medications. States that initially his scalp was itchy, he did not have any shortness of breath, throat swelling, tongue swelling, voice changes, nausea or vomiting. The patient states that he just completed a course of prednisone today for poison oak. Related Data Home Medications ?Medication ?Instructions ?Recorded ?Confirmed epinephrine 0.3 mg/0.3 mL 0.3 mg (0.3 mL) IJ PRN PRN 04/26/16 04/15/25 injection, auto-injector (EpiPen Anaphylaxis #1 mL 2-Stuart) bisacodyl 5 mg tablet,delayed 5 mg PO ONCE #4 tabs 06/17/17 04/15/25 release (Dulcolax (bisacodyl)) ferrous gluconate 256 mg (28 mg 256 mg PO TID 06/17/17 04/15/25 iron) tablet [id number] 1 ea PO DAILY 06/17/17 04/15/25 capsule (Glucosamine Complex-MSM capsule) multivitamin (Daily Multiple 1 ea PO DAILY 06/17/17 04/15/25 tablet) omega-3 fatty acids-fish oil 340 1 ea PO DAILY 06/17/17 04/15/25 mg-1,000 mg capsule (Fish Oil) polyethylene glycol 3350 17 gram 255 gm PO for colonoscopy #1 g 06/17/17 04/15/25 oral powder packet (Miralax) aspirin 81 mg capsule 81 mg PO DAILY 10/15/24 04/15/25 atorvastatin 20 mg tablet 20 mg PO DAILY 10/15/24 04/15/25 escitalopram oxalate 10 mg tablet 10 mg PO DAILY 10/15/24 04/15/25 mecobalamin (vitamin B12) 2 tab PO DAILY 10/15/24 04/15/25 oxycodone 5 mg capsule 5 mg PO Q4H PRN pain #7 caps 10/15/24 04/15/25 tamsulosin 0.4 mg capsule (Flomax) 0.4 mg PO DAILY #7 caps 10/15/24 04/15/25 prednisone 5 mg tablet 5 mg PO DAILY #49 tabs 04/03/25 04/15/25 epinephrine 0.3 mg/0.3 mL 0.3 mg (0.3 mL) IM Q5-15M PRN #1 ea 04/15/25 injection, auto-injector (EpiPen) Previous Rx's ?Medication ?Instructions ?Recorded epinephrine 0.3 mg/0.3 mL 0.3 mg (0.3 mL) IJ PRN PRN 04/26/16 injection, auto-injector (EpiPen Anaphylaxis #1 mL 2-Stuart) bisacodyl 5 mg tablet,delayed 5 mg PO ONCE #4 tabs 06/17/17 release (Dulcolax (bisacodyl)) polyethylene glycol 3350 17 gram 255 gm PO for colonoscopy #1 g 06/17/17 oral powder packet (Miralax) oxycodone 5 mg capsule 5 mg PO Q4H PRN pain #7 caps 10/15/24 tamsulosin 0.4 mg capsule (Flomax) 0.4 mg PO DAILY #7 caps 10/15/24 prednisone 5 mg tablet 5 mg PO DAILY #49 tabs 04/03/25 epinephrine 0.3 mg/0.3 mL 0.3 mg (0.3 mL) IM Q5-15M PRN #1 ea 04/15/25 injection, auto-injector (EpiPen) Allergies Allergy/AdvReac Type Severity Reaction Status Date / Time No Known Allergies Allergy Unverified 04/15/25 19:10 General Stated Complaint: InsectBite JERRY: 4 Exam Narrative Exam Narrative: Gen: Awake and alert, in no apparent distress HEENT: Non-icteric sclera, PERRL. Posterior pharynx without erythema, exudate, or swelling, no asymmetry, stridor, or edema Neck: Supple, full range of motion Lungs: No apparent respiratory distress, normal respiratory effort. Lung sounds clear and equal bilaterally without wheezing, rhonchi, rales CV: Appears well perfused, heart with regular rate and rhythm, strong distal pulses Abdomen: Non-distended, soft, nontender MSK: Moves 4 extremities without apparent limitation in ROM Skin: Visualized skin with no concerning findings for retained stingers or venom sacs. He does have some redness to the dorsal aspect of left hand. He has evidence of a prior poison oak infection on the right upper extremity. No hives or urticaria. Neuro: Normal Gait, no obvious focal deficits or facial asymmetry. Speaks in full, clear sentences. Psych: Appropriate for situation. Course Vital Signs Vital signs: Vital Signs Temperature 36.3 C L 04/15/25 19:05 Pulse 67 04/15/25 19:05 Respiratory Rate 16 04/15/25 19:05 Blood Pressure 114/75 04/15/25 19:05 Pulse Oximetry 94 04/15/25 19:05 Temperature 36.3 C L 04/15/25 19:05 Temperature Source Oral 04/15/25 19:05 Pulse 55 L 04/15/25 20:03 Respiratory Rate 16 04/15/25 20:03 Blood Pressure 121/74 04/15/25 20:03 Blood Pressure Mean 89 04/15/25 20:03 Blood Pressure Position Sitting 04/15/25 19:05 Pulse Oximetry 100 04/15/25 20:03 Oxygen Delivery Method Room Air 04/15/25 20:03 Oxygen Flow Rate 0 04/15/25 20:03 Pain Level 0 04/15/25 19:05 Medical Decision Making This is a 69-year-old male patient presenting for evaluation of allergic reaction to bee stings. Differential includes but is not limited to allergic reaction, considered anaphylaxis though the patient at this time does not have symptomatic evidence of same. No evidence for retained stingers or foreign bodies, no skin changes such as hives or urticaria at this time. Prior to this event the patient was in his normal state of health. I certainly considered suppression of allergic symptoms in the setting of recent prednisone use.. The brief duration of symptoms is reassuring against secondary infection. I do not see an indication at this time to proceed with EpiPen administration, but given the report of itching on the back of the hand I will provide him with a dose of oral Benadryl. We will observe the patient in the emergency department to ensure that he does not develop concerning symptoms. -On reevaluation, the patient has remained without symptoms of airway involvement, urticaria, or nausea to suggest anaphylaxis. He has been hemodynamically appropriate with a reassuring repeat examination. I provided him with a prescription to refill his EpiPen, counseled him on ongoing use of antihistamine medications, as well as a robust discussion of return precautions for delayed anaphylaxis or allergic reaction. At this time, the patient has had a full medical evaluation and is safe for discharge to home. They are hemodynamically stable, ambulatory, and tolerating PO. They are understanding of the follow-up plan and return precautions. They left our facility without incident. Mary Grace Moss MD [facility] All Active Problems (Updated 04/15/25 @ 21:10 by Mary Grace Moss MD) Allergic reaction to wasp sting (Acute) Medical History (Updated 04/15/25 @ 21:10 by Mary Grace Moss MD) Tubular adenoma of colon Knee pain, left Asplenia Family history of coronary artery disease Claustrophobia Bronchospasm Surgical History (Updated 06/07/18 @ 14:34 by Style[employer]eder [place]) Splenomegaly Colonoscopy - MAC (07/05/17) Appendectomy Social History Smoking/Tobacco Use Status: Never Smoking risk assessment performed?: Yes Alcohol Intake: current Alcohol Intake frequency: a few times a month Drug use: Never Substance use type: does not use Do you feel safe at home: Yes Do you feel safe in your relationship?: Yes
[2025-04-15 21:27] VITALS: BP 104/74; PULSE 51; RESP 18; TEMP 36.8; O2SAT 99
== END 2025-04-15 21:29 | disposition home or self-care (01) ==
PROVIDERS: Emergency Provider Emergency Medicine; PCP Nurse Practitioner Family
DX: T63.461A Toxic effect of venom of wasps, accidental (unintentional), initial encounter (principal)
CPT/HCPCS: 99283 ×2

== ENCOUNTER 2025-04-25 20:41 | Outpatient (REF) | payer MEDICARE, SELFPAY ==
[2025-04-27 01:48] LABS: PSA, Diagnostic <0.1 ng/mL (<=6.5)
== END 2025-04-25 20:42 | disposition home or self-care (01) ==
LOC: NCHCN 20:41
PROVIDERS: PCP Nurse Practitioner Family; Visit Provider Nurse Practitioner Family
DX: Z85.46 Personal history of malignant neoplasm of prostate (principal)
CPT/HCPCS: 84153